=== PATIENT | male | born 1995 | race Caucasian/White ===

== ENCOUNTER 2016-08-03 01:38 | Emergency (ER) | payer OTHER ==
[~2016-08-03] VITALS: Ht 172.7 cm; Wt 75.0 kg
[2016-08-03 01:44] VITALS: TEMP 36.6; Ht 172.7 cm; Wt 75.0 kg
[2016-08-03] MEDS ORDERED: ONDANSETRON 4MG OD TAB PO STA (02:15)
--- NOTE | 2016-08-03 02:32 | EMERGENCY ROOM VISIT NOTE ---
History Report prepared by [place]: Chele Aguilar Under the Supervision of: Dr. Lisa Dsouza M.D. First contact with patient: 01:56 Chief Complaint: HEAD INJURY (MINOR) Stated Complaint: NAUSEA,DIZZINESS,CONCUSSION LIKE SYMPTOMS History of Present Illness The patient is a 20 year old male who presents to the Emergency Room with complaints of a sudden head injury occurring prior to arrival. The patient's friend states that the patient fell over a railing and he fell down about ten steps. The friend states that the patient lost consciousness for a few minutes. The patient states that he has been vomiting. He denies any neck pain. The patient states that he was drinking alcohol earlier tonight. The patient states that he does not have any medical problems. He additionally denies any history of concussions. Source of History: patient, friend Onset: prior to arrival Position: head Timing: other (sudden) Associated Symptoms: + vomiting, No neck pain Review of Systems See HPI for pertinent positives & negatives. A total of 10 systems reviewed and were otherwise negative. Past Medical & Surgical Medical Problems: (1) No Known Active Medical Problems Social History Smoking Status: Never Smoker Alcohol Use: occasionally Marital Status: single Housing Status: lives with roommate Occupation Status: [employer] student Current/Historical Medications No Active Prescriptions or Reported Meds Allergies Coded Allergies: No Known Allergies (Unverified , 08/03/16) Physical Exam Vital Signs Date Time Temp Pulse Resp B/P Pulse Ox O2 Delivery O2 Flow Rate FiO2 08/03/16 07:27 92 18 124/59 97 08/03/16 06:54 72 18 129/64 97 Room Air 08/03/16 05:53 78 16 93/47 95 Room Air 08/03/16 04:26 79 16 118/44 97 Room Air 08/03/16 02:30 83 18 119/66 100 Room Air 08/03/16 01:44 18 08/03/16 01:44 36.6 96 16 121/64 95 Room Air Physical Exam Vital signs reviewed. General: Odor of EtOH in the breath, disheveled 20-year-old male. No signs of trauma. HEENT: Mild scleral injection bilaterally, PERRLA, neck supple, dry mucous membranes. Collar in place. Cardiovascular: Regular rate and rhythm, no extra sounds. Pulmonary: Clear to auscultation bilaterally, normal work of breathing. Abdomen: Soft, nontender, nondistended, positive bowel sounds. Musculoskeletal: Upper and lower extremities atraumatic, no peripheral edema. Non-tender to palpation in the cervical spine. Skin: Warm, dry, no rash. Atraumatic. Neurologic: Patient is currently awake but intoxicated. Answers questions appropriately, but speech is slurred. Medical Decision & Procedures ER Provider Diagnostic Interpretation: CT results as stated below per my review and radiologist interpretation: CT HEAD: No intracranial hemorrhage, mass effect or calvarial fracture Ventricles are within limits and midline Visualized paranasal sinuses, mastoids and orbits are within limit CT C SPINE: No fracture or malalignment Radiologist: Cuong Dumont M.D. Medications Administered Medications (Trade) Dose Ordered Sig/Amy Route Start Time Stop Time Status Last Admin Dose Admin Ondansetron HCl (Zofran Odt) 4 mg NOW STAT PO 08/03/16 02:15 08/03/16 02:17 DC 08/03/16 02:25 4 MG ED Course 0156: Past medical records reviewed. The patient was evaluated in room B12. A complete history and physical examination was performed. 0215: Zofran Odt 4mg PO 0659: Upon reevaluation, the patient appeared to have improvement of his symptoms. I discussed findings with him. He verbalized agreement of the treatment plan. He was discharged home. Medical Decision Differential diagnose include: Intracranial injury, cervical spine injury, intrathoracic injury, intra-abdominal injury, musculoskeletal injury. This pt was evaluated and placed on the electronic device monitor. PE is unrevealing however the pt is intoxicated. Cervical precautions are maintained. Pt was given po zofran d/t nausea and need for c-collar. Given mechanism of injury and the +LOC per friends at the bedside, the pt was sent to CT head and c- spine. These studies are negative for acute abnl. Pt was observed for several hours in the ED until he reached a sober state. He was reevaluated and the c- collar removed. He was d/c with head injury instructions to care of friends. He will return to the ED for worsening of symptoms or any medical concerns. Impression Primary Impression: Closed head injury Additional Impression: Alcohol intoxication Scribe Attestation The scribe's documentation has been prepared under my direction and personally reviewed by me in its entirety. I confirm that the note above accurately reflects all work, treatment, procedures, and medical decision making performed by me. Departure Information Dispostion Home / Self-Care Prescriptions No Active Prescriptions or Reported Meds Referrals No Doctor, Assigned (PCP) Forms HOME CARE DOCUMENTATION FORM, IMPORTANT VISIT INFORMATION Patient Instructions Concussion Dc, My [facility] Additional Instructions Diagnosis: Closed head injury, alcohol intoxication Drink plenty of clear fluids Tylenol 650 mg every 6 hours as needed for pain. Avoid any additional head injury or high risk behaviors for head injury for at least 2 weeks or until symptoms are completely resolved. Follow-up with [facility] for reevaluation this week. Return to the ER for worsening of symptoms or any medical concerns. Problem Qualifiers Primary Impression: Closed head injury Encounter type: initial encounter Qualified Codes: S09.90XA - Unspecified injury of head, initial encounter Additional Impression: Alcohol intoxication Complication of substance-induced condition: uncomplicated Qualified Codes: F10.120 - Alcohol abuse with intoxication, uncomplicated
--- NOTE | 2016-08-03 06:46 | DIAGNOSTIC IMAGING REPORT ---
CT HEAD WITHOUT CONTRAST (CT) CLINICAL HISTORY: Change in mental status. Closed head injury. COMPARISON STUDY: No previous studies for comparison. TECHNIQUE: Axial CT of the brain is performed from the vertex to the skull base. IV contrast was not administered for this examination. CT DOSE: FINDINGS: No intra or extra-axial mass lesions are visualized. There is no CT evidence of acute cortical infarction. There is no evidence of midline shift. There is no acute hemorrhage. No calvarial fractures are visualized. There is no evidence of pathologic ventricular dilatation. There is no evidence of acute sinusitis IMPRESSION: Normal noncontrast head CT. Electronically signed by: Felton Salgado M.D. 08/03/2016 6:45 AM Dictated Date/Time: 08/03/2016 6:44 AM
[2016-08-03 07:27] VITALS: BP 124/59; PULSE 92; O2SAT 97
--- NOTE | 2016-08-03 07:50 | DIAGNOSTIC IMAGING REPORT ---
CERVICAL SPINE CT CT DOSE: 956.21 mGy.cm HISTORY: fall, ETOH TECHNIQUE: Multiaxial CT images of the cervical spine were performed and reformatted in the sagittal and coronal plane without the use of contrast. COMPARISON: None. FINDINGS: No fractures. No subluxation. Prevertebral soft tissues and the C1-C2 interval are intact. No pneumothorax. Shotty bilateral cervical lymph nodes which may be age-related. IMPRESSION: No fractures within the cervical spine. Electronically signed by: Noel Dimas M.D. 08/03/2016 7:48 AM Dictated Date/Time: 08/03/2016 7:45 AM
== END 2016-08-03 07:29 | disposition home or self-care (01) ==
LOC: C.EDB 01:40
DX: F10.120 Alcohol abuse with intoxication, uncomplicated (principal); S09.90XA Unspecified injury of head, initial encounter; W10.9XXA Fall (on) (from) unspecified stairs and steps, initial encounter